=== PATIENT | male | born 1935 | race Caucasian/White ===

== ENCOUNTER 2017-06-10 13:34 | Emergency (ER) | payer MEDICARE ==
--- NOTE | 2017-06-10 14:51 | Emergency Department Record ---
History of Present Illness - General Chief Complaint: Fall Injury Stated Complaint: FALL INJURY Time Seen by Provider: 06/10/17 14:23 Source: Patient Mode of Arrival: Wheelchair Limitations: No limitations - History of Present Illness Initial Comments: The patient is here due to falling a week ago and injuring his R flank. He denies any WHARTON, head injury, vomiting, or CP but has had increasing bruising to the abdominal area. The patient has a hx of Parkinson's Dz and is chronically unsteady on his feet. Due to the increasing bruising the staff at the assisted living home would like the patient checked out. He is on Plavix. Complaint: Fall Onset/Timin -: Week(s) Fall From: Standing When Fall Occurred: # Days [employer] Fall Witnessed: Yes, by living facility staff Place Fall Occurred: long-term/SNF Loss of Consciousness: None Prolonged Down Time?: No Symptoms Prior to Fall: None Location: Back, Abdomen Quality: Aching Context: History of frequent falls Associated Symptoms: Denies - Related Data Home Medications Medication Instructions Recorded Confirmed Last Taken Carbidopa/Levodopa/Entacapone 50 - 200 mg PO TID 06/10/17 06/10/17 Unknown [Carbidopa-Levodopa 50 mg-Enta] Cholecalciferol (Vitamin D3) 3,000 unit PO DAILY 06/10/17 06/10/17 Unknown [Vitamin D3] Clopidogrel Bisulfate [Plavix] 75 mg PO DAILY 06/10/17 06/10/17 Unknown Simvastatin 20 mg PO DAILY 06/10/17 06/10/17 Unknown Tamsulosin HCl [Flomax] 0.4 mg PO DAILY 06/10/17 06/10/17 Unknown Allergies Allergy/AdvReac Type Severity Reaction Status Date / Time No Known Drug Allergies Allergy Verified 06/10/17 14:28 Travel Screening - Travel/Exposure Within Last 30 Days Have you traveled within the last 30 days?: No Review of Systems Constitutional: Denies: Chills, Fever Eyes: Denies: Eye discharge ENT: Denies: Congestion Respiratory: Denies: Cough, Dyspnea Cardiovascular: Denies: Arrhythmia, Chest pain Past Medical History - SOCIAL HISTORY Smoking Status: Never smoker Alcohol Use: None Drug Use: None - RESPIRATORY Hx Respiratory Disorders: No - CARDIOVASCULAR Hx Cardio Disorders: No - NEURO Hx Neuro Disorders: Yes Hx CVA: Yes Hx Dementia: Yes Hx TIA: Yes Comment:: Parkinson - GI Hx GI Disorders: No - Hx Genitourinary Disorders: No - ENDOCRINE Hx Endocrine Disorders: No - MUSCULOSKELETAL Hx Musculoskeletal Disorders: No - PSYCH Hx Psych Problems: No - HEMATOLOGY/ONCOLOGY Hx Hematology/Oncology Disorders: No Family Medical History Any Significant Family History?: No Physical Exam - General General Appearance: Alert, Cooperative, No acute distress - Head Head exam: Atraumatic, Normocephalic, Normal inspection - Eye Eye exam: Normal appearance, PERRL - Neck Neck exam: Normal inspection, Full ROM. negative: Tenderness (There is no bony Cspine tenderness.) - Respiratory Respiratory exam: Normal lung sounds bilaterally, Chest wall tenderness (There is R lower Rib tenderness laterally with bruising.) - Cardiovascular Cardiovascular Exam: Regular rate, Normal rhythm, Normal heart sounds - GI/Abdominal GI/Abdominal exam: Soft, Tenderness (There is mild RUQ tenderness to palpation. There is significant bruising to the anterior abdominal wall.). negative: Rebound, Rigid - Extremities Extremities exam: Pedal edema (chronic.) - Neurological Neurological exam: Alert. negative: Motor sensory deficit Course Vital Signs 06/10/17 14:12 Temperature 98.2 F Pulse Rate 70 Respiratory 18 Rate Blood Pressure 154/93 Pulse Ox 98 - Reevaluation(s) Reevaluation #1: The patient is doing well at this time. He denies any pain or discomfort. The patient did come back from CT and had a BM. I did discuss the case with the Radiologist and he stated in addition to the fractures the patient may be rectally impacted. I did check the patient rectally and he does not have any stool in the vault. I did discuss the issues with the patient's son and will give the patient a bottle of Mg Citrate for home. 06/10/17 16:36 Reevaluation #2: I did have a long conversation with the patient's son regarding the xray findings. Due to the injury being a week old and the patient doing so well at home I do not feel he needs hospital admission at this time. The patient's son agrees and will relay the findings to the staff at the patient's home. 06/10/17 16:54 06/10/17 16:58 Medical Decision Making - Data Complexity MDM Data: Labs Ordered and/or Reviewed, X-Ray Ordered and/or Reviewed - Lab Data Result diagrams: 06/10/17 15:00 06/10/17 15:00 - Radiology Data Radiology results: Report reviewed (Head CT: No acute changes. Abd/pelvis CT: Multiple R 10-12 rib fractures. R transverse process fractures L1-3.) Disposition Disposition: Discharge Clinical Impression: Ribs, multiple fractures Qualifiers: Encounter type: initial encounter Fracture type: closed Laterality: right Qualified Code(s): S22.41XA - Multiple fractures of ribs, right side, initial encounter for closed fracture Disposition: Home, Self-Care Condition: (2) Stable Instructions: Rib Fracture (ED), Fall Prevention for Older Adults (ED) Additional Instructions: Please use Tylenol for pain and drink 1/2 of the MG Citrate tonight and 1/2 tomorrow. Please see your family doctor for recheck early next week. Return to the ER for any increased pain, fever, cough, or vomiting. Forms: Patient Portal Access Time of Disposition: 16:34 Quality - Quality Measures Quality Measures: N/A - Blood Pressure Screening View Details: Yes Does Patient Have Any of the Following: No Blood Pressure Classification: Hypertensive Reading Systolic Measurement: 164 Diastolic Measurement: 97 Screening for High Blood Pressure: < First Hypertensive BP, F/U Documented > [ [id number]] First Hypertensive Follow-up Interventions: Referral to alternative/primary care provider.
[2017-06-10 15:11] LABS: BASO % 0.3 % (0-6); EOS % 3.3 % (0-6); GRAN % 70.3 % (47-80); HEMATOCRIT 43.5 % (42.0-52.0); LYMPH % 16.8 % (16-45); MEAN CELL VOLUME 91.4 fl (81-97); MEAN CORPUSCULAR HEMOGLOBIN 29.4 pg (27-33); MEAN CORPUSCULAR HGB CONC 32.2 g/dl (32-36); MEAN PLATELET VOLUME 10.8 fl (7.4-10.4); MONO % 9.3 % (0-9); PLATELET COUNT 195 K/uL (130-400); RED BLOOD COUNT 4.76 M/uL (4.40-5.70); RED CELL DISTRIBUTION WIDTH 13.5 % (11.5-14.5); WHITE BLOOD COUNT W/O DIFF 7.7 K/uL (4.2-12.2)
[2017-06-10 15:23] LABS: BLOOD UREA NITROGEN 17 mg/dL (8-23); PARTIAL THROMBOPLASTIN TIME 31.1 SECONDS (24.5-39.1); PROTHROMBIN TIME (PATIENT) 10.9 SECONDS (9.5-12.1)
[2017-06-10 15:24] LABS: CREATININE 0.7 mg/dL (0.7-1.2); EST GLOMERULAR FILTRATION RATE > 60 mL/min; TOTAL PROTEIN 6.8 g/dL (6.6-8.7)
[2017-06-10 15:26] LABS: GLUCOSE,RANDOM 97 mg/dL (74-109)
[2017-06-10 15:29] LABS: ALB/GLOB RATIO 1.3 (1.1-1.8); ALBUMIN 3.9 g/dL (4.0-5.0); ALKALINE PHOSPHATASE 80 U/L (40-129); ALT/SGPT < 5 U/L (<41); AST/SGOT 16 U/L (10.0-50.0)
[2017-06-10 15:33] LABS: URINE APPEARANCE SL CLOUDY; URINE BILIRUBIN NEGATIVE (NEGATIVE); URINE BLOOD NEGATIVE (NEGATIVE); URINE COLOR YELLOW; URINE GLUCOSE (UA) NEGATIVE (NEGATIVE); URINE KETONE NEGATIVE (NEGATIVE); URINE LEUKOCYTE ESTERASE NEGATIVE (NEGATIVE); URINE NITRITE NEGATIVE (NEGATIVE); URINE PROTEIN NEGATIVE (NEGATIVE)
[2017-06-10] MEDS ORDERED: MAGNESIUM CITRATE 296 ML BTL PO ONE (16:31)
--- NOTE | 2017-06-12 12:20 | CT SCAN REPORT ---
DATE: 06/10/2017 at 1535. EXAM: CT OF THE HEAD WITHOUT CONTRAST. HISTORY: Fall one week ago. Bruising of the abdomen. Plavix therapy history. TECHNIQUE: Routine noncontrast CT examination of the head. COMPARISON: None. FINDINGS: There is moderate dilatation of the subarachnoid spaces consistent with generalized atrophy associated with mild ventriculomegaly. Moderate periventricular and subcortical white matter lucencies are scattered in each cerebral hemisphere symmetrically. These are nonspecific but likely areas of chronic small-vessel ischemia. No other area of abnormally increased or decreased attenuation is noted throughout the brain substance. No abnormal extra-axial fluid collection is seen. No skull fracture is identified. There is minor mucosal thickening and trace dependent fluid within the left maxillary sinus. There is also minimal mucosal thickening within the inferior aspect of the left frontal sinus and the right maxillary sinus. The visualized paranasal sinuses and mastoid air cells are otherwise clear. There is mild atherosclerotic calcification of the distal vertebral arteries and distal internal carotid arteries. The orbits as visualized are unremarkable. IMPRESSION: 1. NO CT EVIDENCE OF ACUTE MAJOR VESSEL INFARCT, INTRACRANIAL HEMORRHAGE, MASS , NOR SKULL FRACTURE. 2. GENERALIZED ATROPHY WITH MILD VENTRICULOMEGALY. 3. MODERATE WHITE MATTER LUCENCIES IN EACH CEREBRAL HEMISPHERE. THESE ARE NONSPECIFIC BUT LIKELY AREAS OF CHRONIC SMALL-VESSEL ISCHEMIA. MINOR INFLAMMATORY CHANGES WITHIN A FEW PARANASAL SINUSES. JOB NUMBER: [id number] MTDD
--- NOTE | 2017-06-12 12:48 | CT SCAN REPORT ---
DATE: 06/10/2017 at 1541. EXAM: CT OF THE ABDOMEN AND PELVIS WITHOUT CONTRAST. HISTORY: Fall one week ago. Abdominal bruising. Patient on Plavix. TECHNIQUE: Helical CT examination of the abdomen and pelvis is performed without oral or intravenous contrast administration. Lack of oral or intravenous contrast utilization limits evaluation of the bowel and solid viscera respectively. COMPARISON: None. FINDINGS: A small dependent left basilar pleural effusion is present. Mild patchy opacities are noted in each lung base dependently consistent with atelectasis or less likely infiltrate. Several calcified nodules are noted in each lung base consistent with healed granulomatous disease. The left basilar pleural space is clear, and no pericardial effusion is identified. The heart is mildly enlarged. Lack of intravenous contrast utilization limits evaluation of the solid viscera and bowel wall. No suspicious focal abnormality is demonstrated within the liver, spleen, pancreas, or adrenal glands. There is a nonobstructing calculus within the lower pole of the left kidney partially obscured by artifact. This measures approximately 5.0 mm in maximum diameter. There is likely a mildly contour- deforming hypodense mass within the posteromedial mid left kidney measuring 1.7 x 2.0 cm. This has fluid density and is likely a benign cyst. The kidneys are otherwise normal in appearance. The gallbladder is unremarkable. No biliary ductal dilatation is seen. No intra-abdominal nor retroperitoneal lymphadenopathy is demonstrated. There is diffuse atherosclerosis. The infrarenal abdominal aorta is mildly tortuous and slightly ectatic measuring 2.7 cm in maximum diameter. No other evidence of aneurysm. No suspicious pelvic mass, lymphadenopathy, or free pelvic fluid. No focal urinary bladder abnormality is identified. The wall of the urinary bladder is at the upper limits of normal in thickness, likely due to incomplete distension ; though this could also relate to muscular hypertrophy or less likely cystitis. There is mild fat density prominence in the left inguinal canal consistent with small, fat-filled inguinal hernia or spermatic cord lipoma. There is a large amount of stool within the rectum with mild rectal wall thickening and minor perirectal fat stranding consistent with stercoral proctitis. There is diverticulosis of the left colon without evidence of diverticulitis. The appendix is visualized and is normal in appearance. No gross bowel dilatation or bowel wall thickening is seen. No defined abdominal wall hematoma is seen, though there is mild subcutaneous fat haziness at the mid abdominal level. There is a nondisplaced fracture of the right transverse process of L1. There are fractures of the proximal aspect as well as the tip of the right 12th rib with the distal fracture mildly displaced and angulated. There is also a nondisplaced fracture of the posterolateral right 10th rib and a minimally displaced fracture of the posterolateral right 11th rib. There are also fractures of the right transverse processes of L2 and L3 with that of L2 mildly distracted. No other acute osseous fracture is seen. There are degenerative changes scattered throughout the visualized spine. IMPRESSION: 1. THERE ARE FRACTURES OF THE RIGHT TRANSVERSE PROCESSES OF L1, L2, AND L3 WITH THE L2 TRANSVERSE PROCESS FRACTURE MILDLY DISTRACTED. THERE ARE FRACTURES BOTH PROXIMALLY AND DISTALLY INVOLVING THE RIGHT 10TH, 11TH, AND 12TH RIBS. 2. SMALL DEPENDENT RIGHT PLEURAL EFFUSION. 3. PATCHY OPACITIES IN THE DEPENDENT LUNG BASES CONSISTENT WITH ATELECTASIS OR LESS LIKELY INFILTRATE. 4. 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 5. NONOBSTRUCTING CALCULUS IN THE LOWER POLE OF THE LEFT KIDNEY. PROBABLE CYST WITHIN THE RIGHT KIDNEY. 6. COLONIC DIVERTICULOSIS WITHOUT EVIDENCE OF DIVERTICULITIS. 7. A LARGE AMOUNT OF STOOL WITHIN THE RECTUM WITH POSSIBLE MILD STERCORAL PROCTITIS. 8. NOT MENTIONED ABOVE IS MILD FAT STRANDING OF THE SUBCUTANEOUS RIGHT FLANK CONSISTENT WITH BRUISING. JOB NUMBER: [id number] MTDD
== END 2017-06-10 16:43 | disposition home or self-care (01) ==
LOC: ER 13:34
DX: S22.41XA Multiple fractures of ribs, right side, initial encounter for closed fracture (principal); S32.028A Other fracture of second lumbar vertebra, initial encounter for closed fracture; S32.038A Other fracture of third lumbar vertebra, initial encounter for closed fracture; S30.1XXA Contusion of abdominal wall, initial encounter; K59.00 Constipation, unspecified; W19.XXXA Unspecified fall, initial encounter; Y92.129 Unspecified place in nursing home as the place of occurrence of the external cause; G52.0 Disorders of olfactory nerve; F02.80 Dementia in other diseases classified elsewhere, unspecified severity, without behavioral disturbance, psychotic disturbance, mood disturbance, and anxiety; Z91.81 History of falling; Z79.01 Long term (current) use of anticoagulants
CPT/HCPCS: 70450; 74176; 80053; 81003; 85025; 85610; 85730; 99283; 99284